=== PATIENT | male | born 1935 | race Caucasian/White ===

== ENCOUNTER 2020-05-14 14:25 | Inpatient (IN) ==
[2020-05-14 15:55] LABS: Basophils % 0.2 % (0.0-0.8); Eosinophils % 0.4 % (0.00-10.9); Hematocrit 34.1 VOL% (42.0-52.0); Immature Granulocytes % 0.9 %; Immature Granulocytes Absolute 0.05 #; Lymphocytes # 0.5 10*3/uL (1.4-4.0); Lymphocytes % 9.5 % (21.2-54.2); Mean Corpuscular HGB Conc 35.2 GM/DL (32-36); Mean Platelet Volume 11.8 FL (9.6-12.0); Monocytes % 6.8 % (1.7-12.7); Neutrophils % 82.2 % (38.7-73.9); Platelet Count 229 T/CUMM (130-400); Red Blood Count 3.59 MC/CUMM (3.8-5.5); Red Cell Distribution Width 17.1 % (9.3-17.3); White Blood Count 5.6 T/CUMM (4-12)
[2020-05-14 16:05] LABS: INR 1.1; PT Patient Result 12.1 SECS (9.8-11.9)
[2020-05-14] MEDS ORDERED: DEXAMETHASONE 4 MG/1 ML VIAL IV STA (16:14)
[2020-05-14 16:21] LABS: Albumin 3.4 G/DL (3.4-5.0); Bilirubin,Total 1.6 MG/DL (0.2-1.0); Calcium 8.5 MG/DL (8.5-10.1); Ferritin 774.8 ng/ml (26-388); Osmolality,Calculated 289.8 MOS/KG (273-304); Potassium 4.7 MMOL/L (3.5-5.1); Total Protein 7.9 G/DL (6.4-8.3)
[2020-05-14 16:22] LABS: Band Neutrophils 5 % (0-10); Elliptocytes Few; Eosinophils 1 % (0-10); Lymphocytes 10 % (20-55); Platelet Estimate Normal; Polychromasia Slight; Segmented Neutrophils 80 % (50-85); Total Cells Counted 100
[2020-05-14] MEDS ORDERED: ONDANSETRON 4 MG/2 ML VIAL IV PRN (18:03)
[2020-05-14] MEDS ORDERED: ACETAMINOPHEN 325 MG TABLET PO PRN (18:03)
[2020-05-14] MEDS ORDERED: GLUCAGON 1 MG VIAL IM PRN (18:03)
[2020-05-14] MEDS ORDERED: DEXTROSE 50% 25 GM/50 ML VIAL IV PRN (18:03)
[2020-05-14] MEDS ORDERED: MELATONIN 3 MG TABLET PO PRN (18:10)
[2020-05-14] MEDS ORDERED: HEPARIN 5,000 UNIT/1 ML VIAL SUBCUT SCH (18:30)
[2020-05-14 19:44] LABS: Bilirubin,Urine Negative (Negative); Blood, Urine Negative (Negative); Glucose,Urine (UA) Negative (Negative); Ketones,Urine Negative (Negative); Mucus,Urine Occasional /LPF (Occasional); Nitrite,Urine Negative (Negative); Protein,Urine Negative; RBC,Urine 2 /HPF (0-4); Urine Appearance CLEAR (Clear); Urine Color Yellow (Yellow); Urine Specific Gravity 1.013 (1.001-1.035); Urine Urobilinogen < 2.0 EU/DL (0.2-1.0); WBC,Urine <1 /HPF (0-6)
[2020-05-14] MEDS ORDERED: cefTRIAXone 1,000 MG in SYRINGE 1 EACH IV SCH (20:00)
[2020-05-14] MEDS ORDERED: SODIUM CHLORIDE 0.9% 100 ML IV ONE (20:47)
[2020-05-14] MEDS ORDERED: MULTIVITAMIN (CENTRUM) TABLET PO SCH (21:00)
[2020-05-14] MEDS ORDERED: atenoloL 25 MG TABLET PO SCH (21:00)
[2020-05-14] MEDS ORDERED: LACTOBACILLUS ACIDOPHILUS/BULGARICUS CAPLET PO SCH (21:00)
[2020-05-14] MEDS ORDERED: MONTELUKAST 10 MG TABLET PO SCH (21:00)
[2020-05-14] MEDS ORDERED: AZITHROMYCIN INJ 500 MG in SODIUM CHLORIDE 0.9% 250 ML IV SCH (21:00)
[2020-05-14] MEDS ORDERED: SIMVASTATIN 20 MG TABLET PO SCH (21:00)
[2020-05-14] MEDS: ASCORBIC ACID 500 MG TABLET PO SCH (21:49)
[2020-05-15 06:07] LABS: Basophils % 0.2 % (0.0-0.8); Eosinophils # 0.1 10*3/uL (0.0-0.87); Eosinophils % 1.4 % (0.00-10.9); Hematocrit 35.5 VOL% (42.0-52.0); Hemoglobin 12.3 GM/DL (14.0-18.0); Immature Granulocytes % 1.2 %; Immature Granulocytes Absolute 0.06 #; Lymphocytes # 0.7 10*3/uL (1.4-4.0); Mean Corpuscular HGB Conc 34.6 GM/DL (32-36); Mean Corpuscular Volume 96.7 FL (87-102); Mean Platelet Volume 12.5 FL (9.6-12.0); Monocytes % 8.3 % (1.7-12.7); Neutrophils % 74.9 % (38.7-73.9); Platelet Count 248 T/CUMM (130-400); Red Blood Count 3.67 MC/CUMM (3.8-5.5); Red Cell Distribution Width 16.8 % (9.3-17.3); White Blood Count 5.1 T/CUMM (4-12)
[2020-05-15 06:20] LABS: Ferritin 812.1 ng/ml (26-388)
[2020-05-15 06:32] LABS: Albumin 3.2 G/DL (3.4-5.0); Bilirubin,Total 1.9 MG/DL (0.2-1.0); Calcium 8.7 MG/DL (8.5-10.1); Osmolality,Calculated 285.7 MOS/KG (273-304); Potassium 4.4 MMOL/L (3.5-5.1); Risk Ratio 3.48; Thyroid Stimulating Hormone 9.2 uIU/ml (0.358-3.74); Total Protein 8.1 G/DL (6.4-8.3)
[2020-05-15 06:38] LABS: Eosinophils 1 % (0-10); Lymphocytes 14 % (20-55); Platelet Estimate Adequate; Segmented Neutrophils 83 % (50-85); Total Cells Counted 100
[2020-05-15 06:39] LABS: Hypochromasia 1+; Microcytosis 1+
[2020-05-15] MEDS: ASCORBIC ACID 500 MG TABLET PO SCH (08:29)
[2020-05-15] MEDS: APIXABAN 2.5 MG TABLET PO SCH ×2 (08:29)
[2020-05-15] MEDS ORDERED: hydroCHLOROthiazide 25 MG TABLET PO SCH (09:00)
[2020-05-15] MEDS ORDERED: COENZYME Q10 100 MG CAPSULE PO SCH (09:00)
[2020-05-15] MEDS ORDERED: OLMESARTAN 20 MG TABLET PO SCH (09:00)
[2020-05-15] MEDS ORDERED: ZINC GLUCONATE 50 MG TABLET PO SCH (09:00)
[2020-05-15] MEDS ORDERED: DEXAMETHASONE 4 MG/1 ML VIAL IV SCH (09:00)
[2020-05-15] MEDS ORDERED: PANTOPRAZOLE 40 MG TABLET PO SCH (09:00)
[2020-05-15 11:35] VITALS: BP 136/56
[2020-05-16] MEDS ORDERED: AZITHROMYCIN 250 MG TABLET PO SCH (21:00)
== END 2020-05-15 15:43 | disposition home health service (06) | DRG 177 ==
LOC: N.ED 14:25 → N.EDINP 18:00 → N.2E 05-15 02:23
PROVIDERS: ADMIT Internal Medicine; ATTEND Internal Medicine